=== PATIENT | male | born 1955 | race Caucasian/White ===

== ENCOUNTER 2021-05-27 14:01 | Emergency (ER) | payer MEDICAID, OTHER ==
[2021-05-27] MEDS ORDERED: LORazepam 1 MG Tab PO ONE (14:33)
== END 2021-05-27 16:51 | disposition home or self-care (01) ==
LOC: JD.ED 14:01
DX: F10.230 Alcohol dependence with withdrawal, uncomplicated (principal); I10 Essential (primary) hypertension; Z72.0 Tobacco use; Z79.899 Other long term (current) drug therapy; Y90.5 Blood alcohol level of 100-119 mg/100 ml
CPT/HCPCS: 36415; 80053; 80306; 80307; 85025; 99284; A9270; 99285